=== PATIENT | female | born 1955 | race Caucasian/White ===

== ENCOUNTER 2017-03-15 08:15 | Outpatient (CLI) | payer OTHER ==
[2017-03-15 13:02] LABS: Cardiac Risk 4.3 (Less than 4.5)
== END 2017-03-15 08:16 ==
LOC: NAVSJIPCSP 08:15
PROVIDERS: ATTEND Internal Medicine
DX: E78.5 Hyperlipidemia, unspecified (principal)
CPT/HCPCS: 36415; 80061

== ENCOUNTER 2017-07-24 09:19 | Outpatient (CLI) | payer OTHER ==
[2017-07-24 12:21] LABS: Cardiac Risk 3.6 (Less than 4.5)
== END 2017-07-24 09:20 | disposition home or self-care (01) ==
LOC: NAVSJIPCSP 09:19
PROVIDERS: ATTEND Internal Medicine
DX: E78.5 Hyperlipidemia, unspecified (principal)
CPT/HCPCS: 36415; 80061

== ENCOUNTER 2017-12-09 05:25 | Emergency (ER) | payer OTHER ==
[2017-12-09] MEDS ORDERED: methylPREDNISolone Sod Succ/PF 125 MG/2 ML VIAL ONE (05:49)
[2017-12-09] MEDS ORDERED: Acetaminophen 500 MG TAB ONE (05:50)
[2017-12-09 06:04] LABS: Base Excess 0.1 mEq/L (-2 - +2); pH (venous) 7.38 (7.35-7.45)
[2017-12-09 06:05] LABS: Hemoglobin (Hb) 15.9 g/dL (11.7-16.0)
[2017-12-09 06:10] LABS: ALT (SGPT) 25 U/L (8-55); AST (SGOT) 25 U/L (5-34); Albumin 4.4 g/dL (3.4-4.8); Alkaline Phosphatase 82 U/L (40-150); Anion Gap 16 mmol/L (10-20); BUN (Urea Nitrogen) 10 mg/dL (9.8-20.1); Bilirubin, Total 0.6 mg/dL (0.2-1.2); CK (CPK) 149 U/L (29-168); Calc. Creatinine Clearance 0 mL/min (70-130); Calcium 9.3 mg/dL (7.8-10.44); Carbon Dioxide 25 mmol/L (23-31); Chloride 101 mmol/L (98-107); Estimated GFR-MDRD 69; Glucose 115 mg/dL (80-115); Protein, Total 7.4 g/dL (6.0-8.3); Sodium 138 mmol/L (136-145)
[2017-12-09 06:13] LABS: CKMB 2.5 ng/mL (0-6.6); Troponin I Less than 0.010 ng/mL (< 0.028)
[2017-12-09 06:14] LABS: Band 15 % (5-11); Hemoglobin 16.7 g/dL (12.0-16.0); Lymphocytes 17 % (21-51); MDiff Complete? YES; Mean Corpuscular HGB CONC 33.2 g/dL (32.0-36.0); Mean Corpuscular Hemoglobin 31.7 pg (27.0-31.0); Mean Corpuscular Volume 95.2 fl (81.0-99.0); Mean Platelet Volume 8.8 fL (7.4-10.4); Monocytes 8 % (0-10); Neutrophil 57 % (42-75); PLT Morphology Comment Appears Adequate; Platelet Count 189 thou/uL (130-400); RBC Distribution Width 11.5 % (11.5-14.5); RBC Morphology Normal; Reactive Lymphocytes 3 % (0-10); Red Blood Cell (RBC) Count 5.28 mill/uL (4.20-5.40); White Blood Cell (WBC) Count 10.9 thou/uL (4.8-10.8)
[2017-12-09] MEDS ORDERED: Oseltamivir 75 MG CAP ONE (06:22)
[2017-12-09] MEDS ORDERED: Albuterol Sulfate 2.5 mg/0.5 ml Neb ONE ×3 (06:23→06:49)
[2017-12-09] MEDS ORDERED: Ondansetron HCl/PF 4 MG/2 ML Vial ONE (06:51)
--- NOTE | 2017-12-09 08:42 | RAD ---
CHEST 1 VIEW: Date: 12/09/17 HISTORY: Dyspnea. COMPARISON: None. FINDINGS: Calcified breast implants obscure the hemithoraces. No focal air space consolidation, pneumothorax, o r effusion. Cardiac silhouette and mediastinal contour is within normal limits. IMPRESSION: No acute intrathoracic abnormality. POS: [facility]AN[facility]
== END 2017-12-09 07:18 | disposition home or self-care (01) ==
LOC: NAV ERS 05:25
DX: J11.1 Influenza due to unidentified influenza virus with other respiratory manifestations (principal); J44.1 Chronic obstructive pulmonary disease with (acute) exacerbation; F32.9 Major depressive disorder, single episode, unspecified; F17.210 Nicotine dependence, cigarettes, uncomplicated; Z79.899 Other long term (current) drug therapy; Z79.891 Long term (current) use of opiate analgesic
CPT/HCPCS: 71045; 80053; 82553; 82805; 83605; 84484; 85025; 87040; 93005; 94640; 94760; 96374; 96375; J2405; J2930; J7611; J7620

== ENCOUNTER 2019-10-07 15:30 | Outpatient (CLI) | payer OTHER, MEDICARE ==
--- NOTE | 2019-10-07 15:50 | RAD ---
Exam: XR Shoulder Lt 3 View STANDARD HISTORY: Left shoulder pain. COMPARISON: 08/21/2016 FINDINGS: No acute fracture, dislocation, or other acute osseous abnormality is identified. Views of the left s houlder are stable compared to prior study. Punctate radio opaque densities are seen overlying left hilar region which are less numerous on the internally rotated view opposed to the externally rotated view, and this is likely artifactual. IMPRESSION: No acute osseous abnormality is identified.
== END 2019-10-07 15:31 | disposition home or self-care (01) ==
LOC: NAV RAD 15:30
PROVIDERS: ATTEND Internal Medicine
DX: M25.512 Pain in left shoulder (principal)

== ENCOUNTER 2020-02-23 10:58 | Emergency (ER) | payer OTHER, MEDICARE ==
--- NOTE | 2020-02-23 11:37 | RAD ---
Exam:Right foot 3 views HISTORY: Pain. Injury. COMPARISON: None FINDINGS: Lisfranc alignment is maintained. Preserved joint spaces. No fracture, cortical irregularit y or periosteal reaction Calcaneal spurring of the plantar aponeurosis insertion site is noted IMPRESSION: No acute abnormality.
== END 2020-02-23 11:55 | disposition home or self-care (01) ==
LOC: NAV ERS 10:58
DX: S92.001A Unspecified fracture of right calcaneus, initial encounter for closed fracture (principal); J44.9 Chronic obstructive pulmonary disease, unspecified; F32.9 Major depressive disorder, single episode, unspecified; F17.210 Nicotine dependence, cigarettes, uncomplicated; Z71.6 Tobacco abuse counseling; Z79.899 Other long term (current) drug therapy; X50.1XXA Overexertion from prolonged static or awkward postures, initial encounter
CPT/HCPCS: 99406

== ENCOUNTER 2021-06-22 09:22 | Outpatient (CLI) | payer OTHER, MEDICARE | END 2021-06-22 09:23 | disposition home or self-care (01) | LOC: NAV RAD 09:22 | PROVIDERS: ATTEND Nurse Practitioner Adult Health | DX: M79.644 Pain in right finger(s) (principal); M79.89 Other specified soft tissue disorders; W54.0XXA Bitten by dog, initial encounter ==

== ENCOUNTER 2022-06-12 08:52 | Emergency (ER) | payer MEDICARE, OTHER ==
[2022-06-12] MEDS ORDERED: Iopamidol 370 76% 100 ML VIAL ONE (09:00)
[2022-06-12 09:42] LABS: #Basophils 0.1 thou/uL (0.0-0.2); #Eosinphils 0.4 thou/uL (0.0-0.7); #Lymphocytes 2.7 thou/uL (1.20-3.40); #Neutrophils 4.7 thou/uL (1.40-6.50); %Eosinophils 4.8 % (0.0-10.0); %Lymphocytes 30.8 % (21.0-51.0); %Monocytes 10.8 % (0.0-10.0); %Neutrophils 52.6 % (42.0-75.0); Hemoglobin 15.2 g/dL (12.0-16.0); Mean Corpuscular HGB CONC 31.2 g/dL (32.0-36.0); Platelet Count 188 thou/uL (130-400); White Blood Cell (WBC) Count 8.9 thou/uL (4.8-10.8)
[2022-06-12 09:45] LABS: ALT (SGPT) 13 U/L (8-55); AST (SGOT) 13 U/L (5-34); Albumin 3.5 g/dL (3.4-4.8); Alkaline Phosphatase 70 U/L (40-110); Anion Gap 13 mmol/L (10-20); BUN (Urea Nitrogen) 19 mg/dL (9.8-20.1); Bilirubin, Total 0.2 mg/dL (0.2-1.2); Calc. Creatinine Clearance 0 mL/min (70-130); Chloride 106 mmol/L (98-107); Estimated GFR 80; Globulin 2.4 g/dL (2.4-3.5); Glucose 101 mg/dL (80-115); Potassium 4.3 mmol/L (3.5-5.1); Protein, Total 5.9 g/dL (5.8-8.1); Sodium 143 mmol/L (136-145)
[2022-06-12 09:58] LABS: Carbon Dioxide 28 mmol/L (23-31)
== END 2022-06-12 11:59 | disposition home or self-care (01) ==
LOC: NAV ERS 08:52
DX: K11.8 Other diseases of salivary glands (principal); J44.9 Chronic obstructive pulmonary disease, unspecified; F17.210 Nicotine dependence, cigarettes, uncomplicated; Z79.899 Other long term (current) drug therapy
CPT/HCPCS: 70492; 80053; 85025; Q9967

== ENCOUNTER 2023-09-15 18:40 | Emergency (ER) | payer OTHER ==
[2023-09-15] MEDS ORDERED: HYDROcodone/Acetaminophen 10/325 mg Tablet ONE (19:56)
[2023-09-15] MEDS ORDERED: Meropenem 1 GM VIAL ONE (20:21)
[2023-09-15] MEDS ORDERED: Vancomycin 1 GM VIAL ONE (20:22)
[2023-09-15] MEDS ORDERED: HYDROcodone/Acetaminophen 5/325 mg Tablet ONE (20:53)
[2023-09-15] MEDS ORDERED: Ibuprofen 800 MG TAB ONE (20:54)
== END 2023-09-15 20:58 | disposition home or self-care (01) ==
LOC: NAV ERS 18:40
DX: S42.252A Displaced fracture of greater tuberosity of left humerus, initial encounter for closed fracture (principal); F17.210 Nicotine dependence, cigarettes, uncomplicated; J44.9 Chronic obstructive pulmonary disease, unspecified; W54.1XXA Struck by dog, initial encounter; Z79.899 Other long term (current) drug therapy
CPT/HCPCS: J2185; J3370